=== PATIENT | male | born 1985 | race Two or more races ===

== ENCOUNTER 2021-10-26 18:16 | Emergency (ER) | payer BC ==
[~2021-10-26] VITALS: Ht 170.2 cm; Wt 75.0 kg
[2021-10-26 18:24] VITALS: BP 147/101
== END 2021-10-26 20:02 | disposition home or self-care (01) ==
LOC: ER 18:18
DX: K64.8 Other hemorrhoids (principal); L29.0 Pruritus ani; R19.09 Other intra-abdominal and pelvic swelling, mass and lump
CPT/HCPCS: 99282